=== PATIENT | female | born 1930 | race African-American/Black ===

== ENCOUNTER 2020-07-11 14:27 | Emergency (ER) | payer MEDICARE ==
[~2020-07-11] VITALS: Ht 152.4 cm; Wt 65.8 kg
[2020-07-11] MEDS ORDERED: ACETAMINOPHEN 325MG TABLET PO ONE (17:15)
[2020-07-11] MEDS ORDERED: ACET650T37 MT (18:58)
[2020-07-11 19:10] VITALS: BP 158/82
== END 2020-07-11 19:11 | disposition home or self-care (01) ==
LOC: ER 14:27
DX: S80.02XA Contusion of left knee, initial encounter (principal); S80.01XA Contusion of right knee, initial encounter; I10 Essential (primary) hypertension; Z79.899 Other long term (current) drug therapy; W05.0XXA Fall from non-moving wheelchair, initial encounter; Y93.89 Activity, other specified; Y92.89 Other specified places as the place of occurrence of the external cause; Y99.8 Other external cause status
CPT/HCPCS: 73562; 99283